=== PATIENT | female | born 1985 | race African-American/Black ===

== ENCOUNTER 2018-12-11 08:20 | Inpatient (IN) | payer BC ==
[2018-12-11 09:26] LABS: BASO % 0.7 % (0-2.0); EOS % 0.6 % (0-4.5); HEMATOCRIT 36.3 % (32.4-45.2); HEMOGLOBIN 11.9 GM/dL (10.7-15.3); LYMPH % 19.7 % (8-40); MCH 28.3 pg (25.7-33.7); MCHC 32.9 g/dl (32.0-36.0); MEAN CELL VOLUME 86.2 fl (80-96); MEAN PLT VOLUME 9.7 fl (7.5-11.1); MONO % 8.3 % (3.8-10.2); NEUT % 70.7 % (42.8-82.8); PLATELET COUNT 150 K/MM3 (134-434); RBC 4.21 M/mm3 (3.60-5.2); RDW 15.5 % (11.6-15.6); WHITE BLOOD COUNT 7.7 K/mm3 (4.0-10.0)
[2018-12-11 09:38] LABS: INR 1.08 (0.83-1.09); PROTHROMBIN TIME (PATIENT) 12.8 SEC (9.7-13.0)
[2018-12-11 09:41] LABS: ACTIVATED PTT 29.5 SECONDS (25.2-36.5)
[2018-12-11 09:56] VITALS: BMI 34.2
[2018-12-11] MEDS: DEXTROSE 5%-LACTATED RINGERS 1,000 ML IV SCH (10:00)
[2018-12-11 10:35] LABS: BLOOD UREA NITROGEN 7.1 mg/dL (7-18); CREATININE 0.7 mg/dL (0.55-1.3); POTASSIUM 4.4 mmol/L (3.5-5.1)
--- NOTE | 2018-12-11 11:27 | HP ---
Past Medical History - Primary Care Physician PCP:: Shaan Lowe - Admission Chief Complaint: 39 weeks , ROM, early labor History of Present Illness: 33 yo , 39 weeks c/o ROM since 730 am today, clear fluid , contraction since 10 am , fhr cat 1 , regular contraction q 2min. GBS negative, EFW 7 lb, adequate pelvis clinically History Source: Patient Limitations to Obtaining History: No Limitations - Past Medical History ...: 1 ...Para: 0 ...Term: 0 ...: 0 ...Spon : 0 ...Induced : 0 ...Multiple Gestation: 0 ...LMP: 03/13/18 ... Weeks Gestation by Dates: 39 ...EDC by Dates: 12/18/18 ...EDC by Sono: 12/18/18 - Past Surgical History Hx Myomectomy: No Hx Transabdominal Cerclage: No - Smoking History Smoking history: Never smoked Have you smoked in the past 12 months: No - Alcohol/Substance Use Hx Alcohol Use: No - Social History History of Recent Travel: No Home Medications - Allergies Allergies/Adverse Reactions: Allergies Allergy/AdvReac Type Severity Reaction Status Date / Time No Known Allergies Allergy Verified 12/11/18 09:40 - Home Medications Home Medications: Ambulatory Orders Prenat 115/Iron Fum/Folic/Dss [ 19 Tablet] 1 each PO DAILY 12/11/18 Review of Systems - Review of Systems Constitutional: reports: No Symptoms Eyes: reports: No Symptoms HENT: reports: No Symptoms Neck: reports: No Symptoms Cardiovascular: reports: No Symptoms Respiratory: reports: No Symptoms Gastrointestinal: reports: No Symptoms Genitourinary: reports: No Symptoms Breasts: reports: No Symptoms Reported Musculoskeletal: reports: No Symptoms Integumentary: reports: No Symptoms Neurological: reports: No Symptoms Hematology/Lymphatic: reports: No Symptoms Psychiatric: reports: No Symptoms Physical Exam - Maternity Vital Signs: Vital Signs Temperature 98.4 F 12/11/18 10:00 Pulse Rate 79 12/11/18 10:00 Respiratory Rate 20 12/11/18 10:00 Blood Pressure 112/74 12/11/18 10:00 O2 Sat by Pulse Oximetry (%) Constitutional: Yes: Well Nourished, No Distress, Calm Eyes: Yes: WNL, Conjunctiva Clear, EOM Intact HENT: Yes: WNL, Atraumatic, Normocephalic Neck: Yes: WNL, Supple, Trachea Midline Cardiovascular: Yes: WNL, Regular Rate and Rhythm Breast(s): Yes: WNL - Abdominal Exam/OB Fundal Height: 38 Number of Fetuses: Single Presentation: Vertex Contractions: Yes Regularity: Regular Intensity: Mod/Strong Monitor Mode: External Heart Rate Location: [facility] Category: I Accelerations: None - Vaginal Exam/OB Vaginal Bleediing: No Dilatation (cm): 2 cm Effacement (%): 70 Amniotic Membrane Status: Ruptured Nitrazine Test: Positive Amniotic Fluid: Yes: Clear Station: -2 - Physical Exam Musculoskeletal: Yes: WNL Extremities: Yes: WNL Edema: Yes Edema: LLE: Trace, RLE: Trace Deep Tendon Reflex Grade: Normal +2 - Labs Lab Results: CBC, BMP 12/11/18 09:15 12/11/18 09:15 Hemorrhage Risk Assessment - Risk Factors Medium Risk Factors: Yes: None High Risk Factors: Yes: None Risk Score: 0 Risk Level: Low Risk Problem List - Problems (1) with 39 completed weeks gestation Code(s): Z3A.39 - 39 WEEKS GESTATION OF (2) membrane rupture Code(s): FXL3849 - (3) Labor established Code(s): UIU4802 - Assessment/Plan admit, FHM GBS negative pain mangement
[2018-12-11] MEDS ORDERED: BUTORPHANOL TARTRATE 1 MG/ML VIAL IVPUSH ONE (11:33)
[2018-12-11] MEDS ORDERED: PROMETHAZINE HCL 25 MG/1 ML VIAL IVPB ONE (11:33)
--- NOTE | 2018-12-11 16:22 | PN ---
Ante-Partal Exam - Subjective Subjective: Patient reports mild pain with contractions Vital Signs: Vital Signs Temperature 98.1 F 12/11/18 14:00 Pulse Rate 86 12/11/18 14:00 Respiratory Rate 18 12/11/18 14:00 Blood Pressure 111/69 12/11/18 14:00 O2 Sat by Pulse Oximetry (%) Bleeding: No Headache: No Visual changes: No Right upper quadrant pain: No - Contractions Contractions: Yes Regularity: Irregular Intensity: Moderate Monitor Mode: External - Exam during Labor Heart Rate: 130 Variability: Moderate Category: I Monitor Accelerations: Present Monitor Decelerations: None Exam: Vaginal Dilatation (cm): 2 Effacement (%): 80 Amniotic Membrane Status: Ruptured Amniotic Fluid: Clear Presentation: Vertex Station: -2 - Intrapartum Hemorrhage Risk Medium Risk Factors: None High Risk Factors: None Risk Score: 0 Risk Level: Low Risk - Assessment/Plan Assessment/Plan: 33 yo @ 39 wks PROM 1. Minimal cervical change, irregular contractions Plan for augmentation with pitocin 2. Category I FHT 3. GBS negative 4. will offer pain medication upon patient request
[2018-12-11] MEDS: OXYTOCIN 30 UNITS in 0.9% NS 30 UNIT/500 ML INFUS.BAG IVPB SCH (17:00)
[2018-12-11] MEDS ORDERED: OXYTOCIN 30 UNITS in 0.9% NS 30 UNIT/500 ML INFUS.BAG IVPB ONE (17:00)
[2018-12-11] MEDS: ELECTROLYTE-148 SOLN 1,000 ML IV SCH ×2 (19:00→21:00)
[2018-12-11] MEDS ORDERED: FENTANYL/BUPIVACAINE/NS/PF - PCEA - 50 ML DISP.SYRIN EP ONE (19:16)
[2018-12-11] MEDS ORDERED: BUPIVACAINE HCL/PF 2.5 MG/ML - 30 ML VIAL IJ ONE (19:21)
[2018-12-11] MEDS ORDERED: LIDO 2%/EPI 1:200000 PRESRVFRE (20 ML SDVIAL) ONE (19:21)
[2018-12-11] MEDS ORDERED: NALOXONE HCL 0.4 MG/ML VIAL IVPUSH PRN (19:42)
[2018-12-11] MEDS: FENTANYL/BUPIVACAINE/NS/PF - PCEA - 50 ML DISP.SYRIN EP SCH (19:45)
--- NOTE | 2018-12-11 23:11 | PN ---
Ante-Partal Exam - Subjective Subjective: Called to patient bedside for deceleration to 100 for approximately 4 minutes, with recovery to baseline 150 Change in maternal position and O2 via facemask given Patient comfortable s/p epidural Vital Signs: Vital Signs Temperature 98.4 F 12/11/18 22:00 Pulse Rate 86 12/11/18 22:45 Respiratory Rate 20 12/11/18 22:45 Blood Pressure 116/91 12/11/18 22:45 O2 Sat by Pulse Oximetry (%) 100 12/11/18 22:45 Bleeding: Yes (bloody show) Bleeding Description: Mild Headache: No Visual changes: No Right upper quadrant pain: No - Contractions Contractions: Yes Regularity: Regular Intensity: Unaware Monitor Mode: External - Exam during Labor Heart Rate: 150 Variability: Moderate Category: II Monitor Accelerations: Absent Exam: Vaginal Dilatation (cm): 4 Effacement (%): 90 Amniotic Membrane Status: Ruptured Presentation: Vertex Station: -1 - Intrapartum Hemorrhage Risk Medium Risk Factors: None High Risk Factors: None Risk Score: 0 Risk Level: Low Risk - Assessment/Plan Assessment/Plan: 33 yo PROM, augmentation of labor, s/p deceleration with good recovery, now category I FHT 1. Continue pitocin augmentation 2. GBS negative 3. Pain well controlled with epidural 4. Will proceed with expectant management
[2018-12-12] MEDS ORDERED: FENTANYL/BUPIVACAINE/NS/PF - PCEA - 50 ML DISP.SYRIN EP ONE ×3 (00:28→10:33)
[2018-12-12] MEDS ORDERED: AMPICILLIN - 2 GM in SODIUM CHLORIDE 100 ML IVPB ONE (01:30)
[2018-12-12] MEDS: ELECTROLYTE-148 SOLN 1,000 ML IV SCH ×2 (01:30→19:42)
[2018-12-12] MEDS ORDERED: AMPICILLIN SODIUM 2 GM VIAL ONE (01:39)
[2018-12-12] MEDS ORDERED: CITRIC ACID/SODIUM CITRATE 30 ML UNIT-DOSE CUP PO ONE ×2 (01:45→13:34)
[2018-12-12] MEDS ORDERED: AMPICILLIN SODIUM 1 GM VIAL ONE ×3 (04:30→13:34)
[2018-12-12] MEDS: AMPICILLIN - 1 GM in SODIUM CHLORIDE 100 ML IVPB SCH ×3 (05:30→13:30)
--- NOTE | 2018-12-12 07:27 | PN ---
Ante-Partal Exam - Subjective Subjective: Patient comfortable s/p epidural Vital Signs: Vital Signs Temperature 98.0 F 12/12/18 06:00 Pulse Rate 79 12/12/18 06:45 Respiratory Rate 18 12/12/18 06:45 Blood Pressure 124/73 12/12/18 06:45 O2 Sat by Pulse Oximetry (%) 100 12/12/18 06:45 Bleeding: No Headache: No Visual changes: No Right upper quadrant pain: No - Contractions Contractions: Yes Regularity: Regular Intensity: Unaware Monitor Mode: External - Exam during Labor Heart Rate: 150 Variability: Moderate Category: I Monitor Accelerations: Present Monitor Decelerations: None Exam: Vaginal Dilatation (cm): 6 Effacement (%): 90 Amniotic Membrane Status: Ruptured Station: -1 - Intrapartum Hemorrhage Risk Medium Risk Factors: None High Risk Factors: None Risk Score: 0 Risk Level: Low Risk - Assessment/Plan Assessment/Plan: 33 yo active labor 1. good cervical change suspect OP position will continue to monitor 2. GBS negative, SROM > 18 hrs on ampicillin 3. Pain well controlled with pitocin 4. Will proceed with expectant management
[2018-12-12 09:09] LABS: POC NITRAZINE POS
--- NOTE | 2018-12-12 13:34 | PN ---
Progress Note (short form) - Note Progress Note: cx 4 cm , thick , large caput , late decel , good BTBV advised c/s ,no dilation , cervical edema, and cat 2 FHR. risks and virgen cruz discussed Problem List - Problems (1) with 39 completed weeks gestation Code(s): Z3A.39 - 39 WEEKS GESTATION OF (2) membrane rupture Code(s): URZ9227 - (3) Labor established Code(s): ZGC6542 -
[2018-12-12] MEDS ORDERED: morphine SULFATE/PF 0.5 MG/ML (2cc Syringe - QUVA) ONE ×3 (15:18)
[2018-12-12] MEDS ORDERED: MEPERIDINE HCL 50 MG/ML VIAL ONE (15:21)
[2018-12-12] MEDS ORDERED: morphine SULFATE/PF 0.5 MG/ML (2cc Syringe - QUVA) EP ONE (15:26)
[2018-12-12] MEDS ORDERED: ONDANSETRON 4 MG/2 ML VIAL IVPUSH PRN (15:26)
--- NOTE | 2018-12-12 15:37 | OP ---
Operative Note - Note: Operative Date: 12/12/18 Pre-Operative Diagnosis: Prolonged ROM, failure to dilate , non reassuring FHR Operation: primary LST c/s Findings: live baby boy 10/28 OP, clear fluid Surgeon: Shaan Lowe Stamping Press Operator: Jarrett Regan Anesthesia: Spinal Estimated Blood Loss (mls): 500 Drains & Tubes with Location: [place] Blood Volume Replaced (mls): 0 Operative Report Dictated: Yes
[2018-12-12] MEDS ORDERED: OXYTOCIN 20 UNITS in 0.9% NS 20 UNIT/1,000 ML INFUS.BAG IV ONE (16:06)
--- NOTE | 2018-12-12 16:42 | OP ---
DATE OF OPERATION: 12/12/2018 PREOPERATIVE DIAGNOSES: at 39 weeks, prolonged ruptured membranes, failure to dilate, nonreassuring heart rate. POSTOPERATIVE DIAGNOSES: at 39 weeks, prolonged ruptured membranes, failure to dilate, nonreassuring heart rate. PROCEDURE: Primary low-segment transverse section. SURGEON: Tiana Lowe MD PRINT DEVELOPER: LV Johnston ANESTHESIA: Epidural. ANESTHESIOLOGIST: BRANDI Hernandez ESTIMATED BLOOD LOSS: 500 mL. FINDINGS: A live baby boy, occiput posterior position, Apgars 9 and 9. DESCRIPTION OF OPERATIVE PROCEDURE: Patient was taken to the operating room. Under adequate epidural anesthesia, abdomen and perineum were prepped and draped. Pfannenstiel abdominal skin incision was made. Abdominal wall was cut layer by layer. Anterior peritoneum was exposed and incised. Upon entering the abdominal cavity, lower uterine segment was identified and uterovesical fold of peritoneum established. Bladder was pushed down. Then, with the lower blade of the Virgilio retractor in the pelvis, a low transverse uterine incision was made. Incision extended laterally with bandage scissors. Head delivered from occiput posterior position. Nasopharynx was suctioned, clear fluid. Anterior and posterior shoulders delivered without difficulty. Live baby boy was delivered, Apgars 9 and 9. Placenta was delivered manually. Uterine cavity was cleaned of all remaining tissue. Uterine incision was closed in 2 layers, first layer with 0 Biosyn continuous suture, the second layer with 0 Biosyn imbricating the first layer. Bladder flap was closed with 0 Biosyn continuous suture. Both tubes and ovaries were checked, were normal. No active bleeding was seen. All the lap pads, sponge, and instrument counts were correct. Then, peritoneum was closed with 0 Biosyn continuous suture. Muscles were brought together with interrupted sutures of 0 Biosyn. Fascia was closed with 0 Biosyn continuous suture, subcutaneous fat with interrupted suture of 0 Biosyn, and the skin was closed with 3-0 Vicryl subcuticular continuous suture. Patient tolerated the procedure well, left the OR in good condition. TIANA LOWE M.D. [id number]
[2018-12-12] MEDS ORDERED: BENZOCAINE 28 GM HEMORRHOIDAL OINTMENT PR PRN (18:41)
[2018-12-12] MEDS ORDERED: METHYLERGONOVINE MALEATE 0.2 MG/1 ML AMP IM PRN (18:41)
[2018-12-12] MEDS ORDERED: WITCH HAZEL 50% (TUCKS) 40 PAD/JAR PAD TP PRN (18:41)
[2018-12-12] MEDS ORDERED: IBUPROFEN 800 MG/8 ML IJ IVPB PRN (18:41)
[2018-12-12] MEDS ORDERED: BENZOCAINE 20% 57 GM BOTTLE TP PRN (18:41)
[2018-12-12] MEDS ORDERED: oxyCODONE HCL 5 MG TABLET PO PRN (18:41)
[2018-12-12] MEDS ORDERED: diphenhydrAMINE HCL 25 MG CAPSULE (FP) PO PRN (18:41)
[2018-12-12] MEDS ORDERED: DEXTROSE 5%-LACTATED RINGERS 1,000 ML IV SCH (18:45)
[2018-12-12] MEDS: FENTANYL/BUPIVACAINE/NS/PF - PCEA - 50 ML DISP.SYRIN EP SCH (20:16)
[2018-12-12] MEDS: OXYTOCIN 30 UNITS in 0.9% NS 30 UNIT/500 ML INFUS.BAG IVPB SCH (20:17)
[2018-12-12] MEDS: OXYTOCIN 20 UNITS in 0.9% NS 20 UNIT/1,000 ML INFUS.BAG IV SCH (20:20)
[2018-12-12] MEDS: DEXTROSE 5%-LACTATED RINGERS 1,000 ML IV SCH (20:20)
[2018-12-13] MEDS: OXYTOCIN 20 UNITS in 0.9% NS 20 UNIT/1,000 ML INFUS.BAG IV SCH (01:33)
[2018-12-13] MEDS ORDERED: CEFAZOLIN 1 GM in DEXTROSE 5%-WATER - 50 ML IVPB SCH (02:00)
[2018-12-13] MEDS: ACETAMINOPHEN 325 MG TABLET (FP) PO PRN (05:35)
[2018-12-13] MEDS: IBUPROFEN 600 MG TABLET (FP) PO PRN ×3 (05:35→20:22)
[2018-12-13 06:23] LABS: BASO % 0.1 % (0-2.0); EOS % 0.3 % (0-4.5); LYMPH % 9.8 % (8-40); MCH 28.6 pg (25.7-33.7); MCHC 33.3 g/dl (32.0-36.0); MEAN CELL VOLUME 85.8 fl (80-96); MEAN PLT VOLUME 9.4 fl (7.5-11.1); MONO % 6.6 % (3.8-10.2); NEUT % 83.2 % (42.8-82.8); PLATELET COUNT 137 K/MM3 (134-434); RBC 3.49 M/mm3 (3.60-5.2); WHITE BLOOD COUNT 15.5 K/mm3 (4.0-10.0)
--- NOTE | 2018-12-13 07:26 | PN ---
Progress Note (short form) - Note Progress Note: pod 1 s/p c/s . doing well, no excess vaginal bleeding CBC, BMP 12/13/18 06:07 12/11/18 09:15 Last Vital Signs Temp Pulse Resp BP Pulse Ox 97.9 F 86 18 118/62 100 12/13/18 04:00 12/13/18 04:00 12/13/18 06:00 12/13/18 04:00 12/12/18 16:45 abdomen soft, no distension, no cva incision dry, clean no calf tenderness no excess vaginal bleeding plan ambulate advance diet pain management Problem List - Problems (1) with 39 completed weeks gestation Code(s): Z3A.39 - 39 WEEKS GESTATION OF (2) membrane rupture Code(s): [id number] - (3) Labor established Code(s): [id number] -
--- NOTE | 2018-12-13 10:04 | PN ---
Progress Note (short form) - Note Progress Note: Post op day#1.S/P C Section under epidural anesthesia with duramorph uneventful.Patient stable and has little pain for which she is on medication.No any anesthesia related problem.Patient DC from the anesthesia care.
[2018-12-13] MEDS: oxyCODONE HCL 5 MG TABLET PO PRN ×3 (13:50→22:35)
[2018-12-13] MEDS: SIMETHICONE 80 MG TAB.CHEW (FP) PO PRN ×2 (13:52→20:22)
[2018-12-13] MEDS ORDERED: BISACODYL 10 MG SUPP.RECT PR PRN (18:41)
[2018-12-14] MEDS: IBUPROFEN 600 MG TABLET (FP) PO PRN ×3 (07:23→18:06)
[2018-12-14] MEDS: oxyCODONE HCL 5 MG TABLET PO PRN ×3 (07:24→18:05)
--- NOTE | 2018-12-14 09:29 | PN ---
Post Progress Note - Subjective Subjective: Pt w/o complaints. Feeling better. She has flatus. No BM yet. Ambulating w/o problems. Pain is well controlled. Post Day: 2 Type of Delivery: Primary C/S Vital Signs: Vital Signs Temperature 97.8 F 12/13/18 20:56 Pulse Rate 96 H 12/13/18 20:56 Respiratory Rate 20 12/13/18 22:00 Blood Pressure 125/66 12/13/18 20:56 O2 Sat by Pulse Oximetry (%) 100 12/12/18 16:45 Breast Exam: Yes: Soft Uterus: Yes: Fundus Firm, Fundus below umbilicus, Non-tender Incision: Yes: Dressing dry and intact Abdomen/GI: Yes: Abdomen soft, Passing flatus, Tolerating PO Lochia: Yes: Rubra Lochia, amount: Small Extremities: Yes: Calves non-tender, Edema (trace b/l) Perineum: Yes: Intact Activity: Ambulating - Labs Labs: CBC WBC 15.5 K/mm3 (4.0-10.0) H 12/13/18 06:07 RBC 3.49 M/mm3 (3.60-5.2) L 12/13/18 06:07 Hgb 10.0 GM/dL (10.7-15.3) L 12/13/18 06:07 Hct 30.0 % (32.4-45.2) L D 12/13/18 06:07 MCV 85.8 fl (80-96) 12/13/18 06:07 MCH 28.6 pg (25.7-33.7) 12/13/18 06:07 MCHC 33.3 g/dl (32.0-36.0) 12/13/18 06:07 RDW 16.0 % (11.6-15.6) H 12/13/18 06:07 Plt Count 137 K/MM3 (134-434) 12/13/18 06:07 MPV 9.4 fl (7.5-11.1) 12/13/18 06:07 Absolute Neuts (auto) 12.9 K/mm3 (1.5-8.0) H 12/13/18 06:07 Neutrophils % 83.2 % (42.8-82.8) H 12/13/18 06:07 Lymphocytes % 9.8 % (8-40) D 12/13/18 06:07 Monocytes % 6.6 % (3.8-10.2) 12/13/18 06:07 Eosinophils % 0.3 % (0-4.5) 12/13/18 06:07 Basophils % 0.1 % (0-2.0) 12/13/18 06:07 Nucleated RBC % 0 % (0-0) 12/13/18 06:07 Assessment/Plan 33yo P1 s/p primary LT C/S, doing well stable, afebrile. The pt is asymptomatic for s/sxs of anemia. care instructions reviewed. Continue routine postop care. Ambulation encouraged.
--- NOTE | 2018-12-14 09:32 | DS ---
Physical Exam-HEALTH AND SAFETY INSTRUCTOR Vital Signs: Vital Signs Temperature 97.8 F 12/13/18 20:56 Pulse Rate 96 H 12/13/18 20:56 Respiratory Rate 20 12/13/18 22:00 Blood Pressure 125/66 12/13/18 20:56 O2 Sat by Pulse Oximetry (%) 100 12/12/18 16:45 Constitutional: Yes: Well Nourished, No Distress, Calm Eyes: Yes: WNL, Conjunctiva Clear HENT: Yes: WNL, Atraumatic, Normocephalic Neck: Yes: WNL, Supple, Trachea Midline Cardiovascular: Yes: WNL, Regular Rate and Rhythm Respiratory: Yes: WNL, Regular, CTA Bilaterally Gastrointestinal: Yes: WNL, Normal Bowel Sounds, Soft, Abdomen, Obese ...Rectal Exam: Yes: Deferred Renal/: Yes: WNL Pelvis: Yes: WNL ....Post : Yes: Uterus firm, Uterus non-tender, Slight lochia rubra Breast(s): Yes: WNL Musculoskeletal: Yes: WNL Extremities: Yes: WNL Edema: Yes Edema: LLE: Trace, RLE: Trace Integumentary: Yes: WNL Wound/Incision: Yes: Clean/Dry, Well Approximated, Sutures Intact, Open to air Neurological: Yes: WNL, Alert, Oriented ...Motor Strength: WNL Psychiatric: Yes: WNL, Alert, Oriented Labs: CBC, BMP 12/13/18 06:07 12/11/18 09:15 Delivery - Delivery Section: Primary, Low Flap Transverse Type of Anesthesia: Epidural Episiotomy/Laceration: None EBL (cc): 500 Delivery, Single - Stages of Labor Date 1st Stage Initiatied: 12/11/18 Time 1st Stage Initiated: 19:00 Date of Delivery: 12/12/18 Time of Delivery: 14:50 Time Placenta Delivered: 14:51 Placenta: Yes: Manual Removal, Normal Configuration - Condition of Infant [employer] Sales Consultant/Event Coordinator Present: Yes Name: Guillermo Salvador Infant Gender: Male Position: OP Total Hours ROM (Hrs/Mins): 32h21m - 1 Minute Total Score: 9 5 Minutes Total Score: 9 - Feeding Plan Initial Plan: Elected not to breastfeed exclusively throughout hospitalization Discharge Summary Problems reviewed: Yes Reason For Visit: ADMISSION OF LABOR Current Active Problems membrane rupture (Acute) Labor established (Acute) with 39 completed weeks gestation (Acute) Procedures: Principal: Primary LT C/S Hospital Course: Normal postop recover Health Concerns: Pospartum care Condition: Good - Instructions Diet, Activity, Other Instructions: Physical activity Resume your normal everyday activity as tolerated no heavy lifting or exercise until seen by your surgeon. You may walk unlimited sisi of and climb stairs. You may resume driving the car when you feel safe and comfortable behind the wheel. No sexual activity as instructed. Wound care If you have a bandage, leave it on, and keep dry for 48-72 hours. After that time discard the outer bandage. If they are tapes on the skin under the out of bandage leave them in place. They will peel off in the next 7 to 10 days. Do Not Peel them off. You may shower the day after surgery. If there are tapes present on the skin, you may shower over them. Diet There are no dietary restrictions. Eat healthy, high-fiber foods. Drink 6 to 8 glasses of liquid each day. This will assist in keeping your bowels are regular. Pain management You may take Tylenol or acetaminophen or Ibuprofen (for example, Motrin, Advil etc.) from my pain prescription medication is ordered should be taken as prescribed for moderate to severe pain. Call MD for any of the following: Severe pain not relieved by medication Fever of 101 or higher Excessive bleeding or drainage on dressing Inability to urinate Referrals: Joselito Hair MD [Staff Physician] - Disposition: HOME - Home Medications Comprehensive Discharge Medication List: Ambulatory Orders Prenat 115/Iron Fum/Folic/Dss [ 19 Tablet] 1 each PO DAILY 12/11/18 Prescription Drug Monitoring Program (I-STOP) results: I-STOP not reviewed
[2018-12-14] MEDS: SIMETHICONE 80 MG TAB.CHEW (FP) PO PRN ×2 (12:58→18:05)
[2018-12-14] MEDS ORDERED: SENNOSIDES/DOCUSATE COMBO (SENNA PLUS) TABLET (UD) PO PRN (22:00)
[2018-12-15] MEDS: oxyCODONE HCL 5 MG TABLET PO PRN (03:17)
[2018-12-15] MEDS: IBUPROFEN 600 MG TABLET (FP) PO PRN ×2 (03:17→14:47)
[2018-12-15] MEDS: SIMETHICONE 80 MG TAB.CHEW (FP) PO PRN ×2 (03:20→14:48)
[2018-12-15 08:06] LABS: BASO % 0.2 % (0-2.0); HEMATOCRIT 29.3 % (32.4-45.2); HEMOGLOBIN 9.3 GM/dL (10.7-15.3); LYMPH % 13.4 % (8-40); MCH 27.6 pg (25.7-33.7); MCHC 31.6 g/dl (32.0-36.0); MEAN CELL VOLUME 87.4 fl (80-96); MEAN PLT VOLUME 9.6 fl (7.5-11.1); MONO % 8.7 % (3.8-10.2); NEUT % 76.7 % (42.8-82.8); PLATELET COUNT 205 K/MM3 (134-434); RBC 3.35 M/mm3 (3.60-5.2); RDW 15.9 % (11.6-15.6); WHITE BLOOD COUNT 11.4 K/mm3 (4.0-10.0)
[2018-12-15 12:36] VITALS: BP 118/90; PULSE 88; TEMP 98.5
[2018-12-15] MEDS: ACETAMINOPHEN 325 MG TABLET (FP) PO PRN (14:48)
--- NOTE | 2018-12-18 19:00 | PATH ---
Surgical Pathology Report Patient Name: KYLE MENENDEZ Med. Rec. 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 Specimen(s) Received PLACENTA Clinical History at 39.1 weeks Final Diagnosis PLACENTA: THIRD TRIMESTER PLACENTA WITH ACUTE CHORIOAMNIONITIS. TRIVASCULAR CORD WITH ACUTE FUNISITIS. Electronically Signed Braydon Weiss M.D. Gross Description The specimen is received fresh labeled placenta and is a 508 gram, 15.0 x 15.0 x 2.5 cm. placenta with attached membranes and umbilical cord. The attached membranes are davila, translucent with focal opacities and insert marginally. The umbilical cord measures 17 cm. in length and averages 1.2 cm. in diameter. The cord inserts eccentrically, 2.5 cm. to the nearest margin. No true knots or strictures are identified. Cut surface of the umbilical cord reveals 3 vessels. The surface is rdz-blue with minimal fibrin deposition and appropriate caliber vessels. The maternal surface is red-brown with focal defects. Sectioning reveals red-brown, spongy parenchyma. No lesions are identified. Web Developer sections are submitted in three cassettes as follows: 1- membrane rolls and umbilical cord; 2-3- full thickness sections of placenta. /12/17/2018 [place]/12/17/2018
== END 2018-12-15 17:25 | disposition home or self-care (01) | DRG 788 ==
LOC: JLDR 08:20 → J3N 12-12 19:25 → J3W 12-14 11:00
PROVIDERS: ADMIT Obstetrics & Gynecology; ATTEND Obstetrics & Gynecology
PROC: 10D00Z1 Extraction of Products of Conception, Low, Open Approach (ICD-10-PCS; principal; 2018-12-12)
DX: O76 Abnormality in fetal heart rate and rhythm complicating labor and delivery (principal); O62.0 Primary inadequate contractions; O42.92 Full-term premature rupture of membranes, unspecified as to length of time between rupture and onset of labor; O99.02 Anemia complicating childbirth; D64.9 Anemia, unspecified; Z3A.39 39 weeks gestation of pregnancy; Z37.0 Single live birth
CPT/HCPCS: 36415; 36600; 80048; 82803; 83986-QW; 85025; 85610; 85730; 86593; 86850; 86900; 86901; 88307-TC; J2175